=== PATIENT | female | born 1995 | race Two or more races ===

== ENCOUNTER 2019-03-05 12:06 | Emergency (ER) | payer SELFPAY ==
[~2019-03-05] VITALS: Ht 157.5 cm; Wt 81.0 kg
[2019-03-05 12:25] VITALS: BP 120/63
[2019-03-05] MEDS ORDERED: PRED50TA PO (13:49)
[2019-03-05] MEDS ORDERED: FLUT9.9S NS (13:49)
[2019-03-05] MEDS ORDERED: AMOX1TAB61 PO (13:49)
--- NOTE | 2019-03-05 13:50 | PHYS DOC ---
Past Medical History Past Medical History: No Pertinent History Past Surgical History: No Surgical History Alcohol Use: None Adult General Chief Complaint Chief Complaint: HEADACHE HPI HPI Patient is a 23 year old female who presents to the ED today complaining of cough and nasal congestion that began 2 weeks ago and got worse yesterday with increased symptoms including body aches, headache, sore throat, and bilateral ear pain. She reports subjective fevers. Review of Systems Review of Systems Constitutional: Denies fever or chills [] Eyes: Denies change in visual acuity, redness, or eye pain [] HENT: Reports nasal congestion,sore throat [] Respiratory: Reports cough, denies shortness of breath [] Cardiovascular: No additional information not addressed in HPI [] GI: Denies abdominal pain, nausea, vomiting, bloody stools or diarrhea [] : Denies dysuria or hematuria [] Musculoskeletal: Denies back pain or joint pain [] Integument: Denies rash or skin lesions [] Neurologic: Reports headache, denies focal weakness or sensory changes [] All other systems were reviewed and found to be within normal limits, except as documented in this note. Allergies Allergies Allergies Coded Allergies Type Severity Reaction Last Updated Verified No Known Drug Allergies 03/05/19 No Physical Exam Physical Exam Constitutional: Well developed, well nourished, no acute distress, non-toxic appearance. [] HENT: Normocephalic, atraumatic, bilateral external ears normal, oropharynx moist, no oral exudates, patient sounds congested nasally. Mild frontal and maxillary sinus tenderness. Eyes: PERRLA, EOMI, conjunctiva normal, no discharge. [] Neck: Normal range of motion, no tenderness, supple, no stridor. [] Cardiovascular:Heart rate regular rhythm, no murmur [] Lungs & Thorax: Bilateral breath sounds clear to auscultation [] Abdomen: Bowel sounds normal, soft, no tenderness, no masses, no pulsatile masses. [] Skin: Warm, dry, no erythema, no rash. [] Back: No tenderness, no CVA tenderness. [] Extremities: No tenderness, no cyanosis, no clubbing, ROM intact, no edema. [] Neurologic: Alert and oriented X 3, normal motor function, normal sensory function, no focal deficits noted. [] Psychologic: Affect normal, judgement normal, mood normal. [] Current Patient Data Vital Signs Vital Signs Date Time Temp Pulse Resp B/P (MAP) Pulse Ox O2 Delivery O2 Flow Rate FiO2 03/05/19 12:25 99.3 109 16 120/63 (82) 99 Room Air 99.3 EKG EKG [] Radiology/Procedures Radiology/Procedures [] Course & Med Decision Making Course & Med Decision Making Pertinent Labs and Imaging studies reviewed. (See chart for details) This is a 23-year-old female patient with acute sinusitis that has gotten worse in the last couple days. Be discharged with Flonase, Augmentin. Ibuprofen/Tylenol recommended for headache and pain or fever. Dragon Disclaimer Dragon Disclaimer This electronic medical record was generated, in whole or in part, using a voice recognition dictation system. Departure Departure Impression: Primary Impression: Acute sinusitis Disposition: HOME, SELF-CARE Condition: STABLE Referrals: NO PCP (PCP) Follow up with your doctor in 1-2 weeks Patient Instructions: Sinus Headache, [id number], Sinusitis Additional Instructions: You were evaluated in the emergency room and diagnosed with acute sinusitis. We put you on antibiotics, ensure you complete them. Take Tylenol/Motrin for. Use Flonase to help with congestion. Follow-up with your doctor in 1-2 weeks Scripts Fluticasone Propionate (Flonase Allergy Relief) 9.9 Ml [email or web address] 2 SPRAYS NS DAILY, #1 BOTTLE Prov: JOSEFA HORNER APRN 03/05/19 Prednisone (PREDNISONE) 50 Mg Tablet 1 TAB PO DAILY, #5 TAB Prov: JOSEFA HORNER APRN 03/05/19 Amoxicillin/Potassium Clav (AUGMENTIN 875-125 TABLET) 1 Each Tablet 1 TAB PO BID for 10 Days, #20 TAB 0 Refills Prov: OJSEFA HORNER APRN 03/05/19 Problem Qualifiers Primary Impression: Acute sinusitis Sinusitis location: maxillary Recurrence: non-recurrent Qualified Codes: J01.00 - Acute maxillary sinusitis, unspecified JOSEFA HORNER APRN Mar 05, 2019 13:50
== END 2019-03-05 14:05 | disposition home or self-care (01) ==
LOC: ER 12:06
DX: J01.00 Acute maxillary sinusitis, unspecified (principal); R51 Headache; R50.9 Fever, unspecified; H92.03 Otalgia, bilateral
CPT/HCPCS: 99283